=== PATIENT | female | born 1960 | race Caucasian/White ===

== ENCOUNTER 2017-04-16 12:25 | Emergency (ER) | payer SELFPAY ==
[2017-04-16 12:47] VITALS: BP 119/28; PULSE 53; TEMP 98.1; O2SAT 97
[2017-04-16] MEDS ORDERED: APAP/OXYCODONE 325/5 TAB PO ONE (13:23)
[2017-04-16] MEDS ORDERED: APAP/OXYCODONE 325/5 TAB ONE (13:24)
[2017-04-16 13:35] VITALS: RESP 20
== END 2017-04-16 13:42 | disposition home or self-care (01) | DRG 563 ==
LOC: ED 12:25
DX: S42.291A Other displaced fracture of upper end of right humerus, initial encounter for closed fracture (principal); W01.198A Fall on same level from slipping, tripping and stumbling with subsequent striking against other object, initial encounter
CPT/HCPCS: 73060; 99282

== ENCOUNTER 2017-04-24 09:06 | Outpatient (CLI) | payer SELFPAY ==
[2017-04-16 12:47] VITALS: O2SAT 97
== END 2017-04-24 09:07 | disposition home or self-care (01) | DRG 561 ==
LOC: CONVCARE 09:06
PROVIDERS: ATTEND Orthopaedic Surgery
DX: S42.221D 2-part displaced fracture of surgical neck of right humerus, subsequent encounter for fracture with routine healing (principal)
CPT/HCPCS: 73030

== ENCOUNTER 2017-05-15 12:40 | Outpatient (CLI) | payer SELFPAY ==
[2017-04-16 12:47] VITALS: O2SAT 97
== END 2017-05-15 12:41 | disposition home or self-care (01) | DRG 561 ==
LOC: CONVCARE 12:40
PROVIDERS: ATTEND Orthopaedic Surgery
DX: S42.251D Displaced fracture of greater tuberosity of right humerus, subsequent encounter for fracture with routine healing (principal); S42.211D Unspecified displaced fracture of surgical neck of right humerus, subsequent encounter for fracture with routine healing
CPT/HCPCS: 73030